=== PATIENT | male | born 1955 | race Caucasian/White ===

== ENCOUNTER 2024-07-03 04:40 | Outpatient (CLI) | payer OTHER, MEDICARE | END 2024-07-03 23:59 | disposition short-term general hospital (02) | LOC: EMS 04:40 | DX: R06.00 Dyspnea, unspecified (principal); R06.2 Wheezing; R09.89 Other specified symptoms and signs involving the circulatory and respiratory systems | CPT/HCPCS: A0425; A0427 ==